=== PATIENT | male | born 1930 | race Caucasian/White ===

== ENCOUNTER 2018-09-15 20:43 | Emergency (ER) | payer OTHER ==
[2018-09-15 21:03] LABS: PLATELET COUNT 186 10^3/uL (150-400)
--- NOTE | 2018-09-15 21:09 | EDPHY ---
HPI/HX/ROS/PE/MDM Narrative: CHIEF COMPLAINT: Chest pain HPI: The patient is an 88 y/o male with hypertension and atrial fibrillation arriving via EMS complaining of pinpoint left-sided chest pain and fatigue for the last three weeks. He says "it started out as very mild and the deeper the breath I took the harder it hurt." Tonight he spoke with his [id number] about the pain and ultimately was encouraged to call 911 for evaluation. His pain is not aggravated by palpation, but is worse with inspiration. He is not on anticoagulants, but does take aspirin. These symptoms do not feel similar to the chest tightness he experienced two years ago while swimming that lead to his diagnosis of atrial fibrillation. He denies cough, fever, vomiting, abdominal pain, diarrhea, urinary symptoms, or other complaints. REVIEW OF SYSTEMS: A comprehensive 10 system review of systems is otherwise negative aside from elements mentioned in the history of present illness. PMH: Hypertension, atrial fibrillation, frequent PVCs Prior medical records reviewed including admission 03/05/16 for chest pain. SOCIAL HISTORY: Children at bedside. His 3 weeks after starting blood thinners and he adamantly refuses to take them. PHYSICAL EXAM: General:Patient is alert, in no acute distress. ENT:Eyes are normal to inspection. ENT inspection normal. Neck: Normal inspection. Full range of motion. Respiratory:No respiratory distress. Breath sounds normal bilaterally. Cardiovascular: Regular rate and rhythm. Strong peripheral pulses. Normal cap refill. Abdomen:The abdomen is nontender to palpation. There are no peritoneal signs. Back: Normal to inspection. No tenderness to palpation. Skin: Normal color. No rash. Warm and dry. Extremities: Normal appearance. Full range of motion. Neuro: Oriented x3. Normal motor function. Normal sensory function. ED Course: This is an 87 y/o male with a history of atrial fibrillation not on anticoagulants who presents with a three-week history of pinpoint left-sided chest pain. Exam is unremarkable. Plan for IV, labs, EKG, chest x-ray. The 12 lead EKG was interpreted by myself. See hard copy and/or "tracemaster" electronic copy for interpretation. Chest x-ray: no obvious pneumonia Labs including troponin, d-dimer are normal. Reassessed patient and discussed findings. On reexamination, upon palpating in a specific location on his left chest wall he experiences relief of his pain. Family notes he also had a fall recently. This combined with a negative work up points more towards musculoskeletal causes of his pain. Discussed options for further investigation and he would prefer to return home and follow up as an outpatient. Recommended preschool assistant teacher follow up as well. Return precautions discussed. He is comfortable with this plan. - Data Points Imaging Results: Imaging Impressions Chest X-Ray 09/15/18 20:46 Impression: Minimal left basilar diskoid subsegmental atelectasis versus linear scar. Imaging: I viewed and interpreted images myself Laboratory Results: Laboratory Results 09/15/18 20:50 09/15/18 21:11 09/15/18 09/15/18 09/15/18 21:11 21:11 20:55 WBC RBC Hgb Hct MCV MCH MCHC RDW Plt Count MPV Neut % (Auto) Lymph % (Auto) Brule % (Auto) Eos % (Auto) Baso % (Auto) Nucleat RBC Rel Count Absolute Neuts (auto) Absolute Lymphs (auto) Absolute Monos (auto) Absolute Eos (auto) Absolute Basos (auto) Absolute Nucleated RBC Immature Gran % Immature Gran # D-Dimer 0.49 ug/mLFEU ug/mLFEU (0.00-0.50) Turbidity Sodium 137 mEq/L mEq/L (135-145) Potassium 4.2 mEq/L mEq/L (3.3-5.0) Chloride 104 mEq/L mEq/L (97-110) Carbon Dioxide 28 mEq/l mEq/l (22-31) Anion Gap 5 mEq/L L mEq/L (6-14) BUN 22 mg/dL mg/dL (7-23) Creatinine 0.9 mg/dL mg/dL (0.7-1.3) Estimated GFR > 60 Glucose 90 mg/dL mg/dL (70-100) Calcium 9.1 mg/dL mg/dL (8.5-10.4) POC Troponin I 0.02 ng/mL ng/mL (0.00-0.08) Specimen Hemolysis 09/15/18 09/15/18 09/15/18 20:50 20:50 20:50 WBC 8.20 10^3/uL 10^3/uL (3.80-9.50) RBC 4.50 10^6/uL 10^6/uL (4.40-6.38) Hgb 14.6 g/dL g/dL (13.7-17.5) Hct 42.8 % % (40.0-51.0) MCV 95.1 fL fL (81.5-99.8) MCH 32.4 pg pg (27.9-34.1) MCHC 34.1 g/dL g/dL (32.4-36.7) RDW 13.5 % % (11.5-15.2) Plt Count 186 10^3/uL 10^3/uL (150-400) MPV 10.6 fL fL (8.7-11.7) Neut % (Auto) 51.5 % % (39.3-74.2) Lymph % (Auto) 33.7 % % (15.0-45.0) Brule % (Auto) 8.0 % % (4.5-13.0) Eos % (Auto) 5.6 % % (0.6-7.6) Baso % (Auto) 1.0 % % (0.3-1.7) Nucleat RBC Rel Count 0.0 % % (0.0-0.2) Absolute Neuts (auto) 4.22 10^3/uL 10^3/uL (1.70-6.50) Absolute Lymphs (auto) 2.76 10^3/uL 10^3/uL (1.00-3.00) Absolute Monos (auto) 0.66 10^3/uL 10^3/uL (0.30-0.80) Absolute Eos (auto) 0.46 10^3/uL H 10^3/uL (0.03-0.40) Absolute Basos (auto) 0.08 10^3/uL 10^3/uL (0.02-0.10) Absolute Nucleated RBC 0.00 10^3/uL 10^3/uL (0-0.01) Immature Gran % 0.2 % % (0.0-1.1) Immature Gran # 0.02 10^3/uL 10^3/uL (0.00-0.10) D-Dimer REJ Turbidity REJ Sodium REJ Potassium REJ Chloride REJ Carbon Dioxide REJ Anion Gap REJ BUN REJ Creatinine REJ Estimated GFR REJ Glucose REJ Calcium REJ POC Troponin I Specimen Hemolysis REJ Point of Care Test Results: Chemistry 10/29/18 20:55 POC Troponin I 0.02 ng/mL ng/mL (0.00-0.08) General Time Seen by Provider: 09/15/18 20:45 Initial Vital Signs: Initial Vital Signs Temperature (C) 36.4 C 09/15/18 20:43 Heart Rate 87 09/15/18 20:43 Respiratory Rate 16 09/15/18 20:43 Blood Pressure 155/89 H 09/15/18 20:43 O2 Sat (%) 94 09/15/18 20:43 O2 Delivery Mode Room Air Allergies/Adverse Reactions: No Known Allergies Allergy (Verified 09/15/18 20:51) Home Medications: Medication Instructions Recorded C/E/Zn/Cu/OM3/DHA/EPA/LUT/ZEAX 1 each PO HS 03/05/16 [Preservision Areds 2 Softgel] Lisinopril [Zestril 20 mg (*)] 20 mg PO HS 03/05/16 amLODIPine BESYLATE [Norvasc 10 mg 10 mg PO HS 03/05/16 (*)] Aspirin [Aspirin 325 mg (*)] 325 mg PO DAILY #0 tab 03/06/16 Departure - Departure Disposition: Home, Routine, Self-Care Clinical Impression: Chest wall pain Condition: Good Instructions: Chest Wall Pain (ED) Additional Instructions: Follow up with your preschool assistant teacher this week. Return to the ED for any worsening of condition. Referrals: Noah Villegas, AFTER SCHOOL PROGRAM DIRECTOR [Certified Nurse Practioner] - As per Instructions Report Scribed for: Ankit Mehta Report Scribed by: Kait Dunn Date of Report: 09/15/18 Time of Report: 21:11 Physician Review and Approval Statement: Portions of this note were transcribed by an ED scribe. I personally performed the history, physical exam, and medical decision making; and confirm the accuracy of the information in the transcribed note.
[2018-09-15 22:39] VITALS: BP 132/70
--- NOTE | 2018-09-22 21:27 | CPEKG ---
Test Reason : OPEN Blood Pressure : / mmHG Vent. Rate : 078 BPM Atrial Rate : 078 BPM P-R Int : 241 ms QRS Dur : 091 ms QT Int : 373 ms P-R-T Axes : 020 032 050 degrees QTc Int : 425 ms Sinus rhythm Prolonged AK interval Confirmed by Ankit Mehta ([id number]) on 09/22/2018 9:26:58 PM Referred By: Confirmed By:Ankit Mehta
== END 2018-09-15 22:37 | disposition home or self-care (01) ==
LOC: EDUNIT#
DX: R07.89 Other chest pain (principal); J98.4 Other disorders of lung; I48.91 Unspecified atrial fibrillation; I10 Essential (primary) hypertension
CPT/HCPCS: 84484-PO

== ENCOUNTER 2018-10-16 19:50 | Inpatient (IN) | payer OTHER ==
[2018-10-16] MEDS ORDERED: ONDANSETRON DISINTEGRATING 4 MG TAB PO ONE (20:22)
--- NOTE | 2018-10-16 20:49 | EDPHY ---
HPI/HX/ROS/PE/MDM Narrative: CLINICAL IMPRESSION: Closed right subcapital hip fracture ASSESSMENT/PLAN: This is a pleasant 88-year-old male who presents to the emergency department with acute right hip and upper leg pain after a ground level fall in his home tonight. Patient fell on his right side after losing his balance opening refrigerator. He did not hit his head, denies neck and back pain, has no chest wall or rib pain, and no other injuries reported. On x-rays, patient has a closed subcapital right hip fracture that will need surgical intervention. No other fractures identified. Discussed with hospitalist and Dr. Yeboah from Orthopedics. He will likely take the patient to the operating room tomorrow. Preop labs obtained. Patient was comfortable in the ED and did not require any pain medications. X-ray findings and orthopedic recommendations related to the family. Patient was stabilized prior to admission to hospitalist service. DIFFERENTIAL DX: Differential diagnosis includes but not limited to femur fracture, hip fracture , pelvic fracture, leg contusion, soft tissue injury ED PROCEDURES: See lab and x-ray results below ED COURSE: Discussed with hospitalist and Orthopedics. Patient will be admitted to hospitalist service. Plan for surgery tomorrow. NPO after midnight. Patient declining analgesics in the ED. X-ray results discussed with the family. CHIEF COMPLAINT: Fall HPI: This is a very pleasant 88-year-old male who presents to the emergency department after a ground level fall in his home. Patient reports he was going to the refrigerator to remove a meal, pulled back on the refrigerator door, lost his balance and fell onto his right hip. He is complaining of right upper leg pain. He was able to crawl onto his left knee and call his neighbor for help and they called 911. Patient reports he did not hit his head or have loss of consciousness. He reports no neck or back pain, chest wall pain, abdominal pain, or arm pain. No prior orthopedic surgery to the right hip or leg. No reported loss of sensation to the foot or toes. No headache, dizziness, vertigo , weakness, chest pain or shortness of breath. He was feeling slightly nauseous upon arrival, received Zofran and is now feeling better. PMH: Hypertension, macular degeneration Pertinent Past Surgical History: Back surgery, previous appendectomy Family History: Noncontributory Social History: Lives alone REVIEW OF SYSTEMS: All other systems negative Constitutional: No fever, no chills, appetite change. Eyes: No discharge, vision change ENT: No sore throat, congestion, ear pain. Cardiovascular: No chest pain, no palpitations. Respiratory: No cough, no shortness of breath. Gastrointestinal: No abdominal pain, no vomiting, diarrhea. Genitourinary: No hematuria, dysuria, flank pain, pelvic pain Musculoskeletal: No back pain, joint swelling, +joint pain, myalgias. Skin: No rashes, color change. Neurological: No headache, dizziness, weakness. PHYSICAL EXAM: General Appearance: Alert, oriented, appropriate, cooperative, NAD, well hydrated, non-toxic appearing, VSS, no hypoxia. HEENT: TMs are clear bilaterally no perforation or FB, no injection, no evidence of serous or mucopurulent otitis. Oropharynx clear is no erythema or exudates, no tonsillar hypertrophy or asymmetry. Dentition without abnormality. No scalp hematoma or evidence of closed head injury Eyes: PERRLA, no acute vision change, nystagmus, swelling, discharge, pain or photosensitivity. Conjunctiva pink, no pallor or injection Neck: Supple, nontender, no lymphadenopathy, no midline pain, FROM, no meningismus. Respiratory: There are no retractions, lungs are clear to auscultation. No chest wall pain to palpation. No rib pain. Cardiac: Regular rate and rhythm, no murmurs or gallops. Gastrointestinal: Abdomen is soft, nontender, bowel sounds normal, no masses/ hernia, no rigidity, guarding or focal peritoneal findings. Neurological: Alert and oriented x 3, CN 2-12 grossly intact, unable to ambulate, DTR's intact, normal sensation and strength Skin: Warm, dry, no rashes, no nodules on palpation. Musculoskeletal: Unable to assess range of motion of the right hip due to pain. No obvious deformity or internal or external rotation or shortening. No reproducible knee pain. Distal neurovascular exam intact. Femoral pulses intact bilaterally, no open wound Psychiatric: Patient is oriented X 3, there is no agitation. MEDICAL DECISION MAKING: Patient was seen independently. Secondary supervising physician at time of evaluation was Dr. Concepcion . Diagnosis: Closed right subcapital femur fracture . New, requires workup Summary: See Assessment and Plan for summary of ED visit Clinical lab tests: ordered / reviewed. Independent visualization of images, tracing, or specimens: Yes. Discussed patient with another provider: Dr. Yeboah, DR. Oneill Patient Progress: Stabilized . (Hernando Burk) MDM: The patient was evaluated and managed by the Physician Phlebotomy Supervisor. I discussed the patient's presentation and course with the midlevel provider with them and agree with the evaluation. My co-signature indicates that I have reviewed this chart and I agree with the findings and plan of care as documented. I am the secondary supervising physician. (Niesha Concepcion) - Data Points Laboratory Results: Laboratory Results 10/16/18 21:50 10/16/18 21:50 Medications Given: Amlodipine Besylate (Norvasc) 10 mg PO HS PAIGE Stop: 04/15/19 20:59 Last Admin: 10/17/18 21:19 Dose: 10 mg Enoxaparin Sodium (Lovenox) 40 mg SC DAILY PAIGE Stop: 04/16/19 08:59 Last Admin: 10/18/18 09:26 Dose: 40 mg Dextrose/Sodium Chloride (D5w 1/2 Ns) 1,000 mls @ 100 mls/hr IV CONT PAIGE Stop: 04/14/19 22:29 Last Admin: 10/17/18 00:53 Dose: 1,000 mls Sodium Chloride (Ns) 1,000 mls @ 100 mls/hr IV CONT PAIGE Stop: 04/15/19 08:44 Last Admin: 10/17/18 09:53 Dose: 1,000 mls Ondansetron HCl (Zofran Odt) 4 mg PO Q4HRS PRN PRN Reason: Nausea/Vomiting, Use 1st Stop: 04/14/19 22:17 Last Admin: 10/17/18 00:48 Dose: 4 mg Discontinued Medications Acetaminophen (Tylenol) 1,000 mg PO Q8HRS PRN PRN Reason: Pain, Mild to moderate Stop: 04/14/19 22:17 Last Admin: 10/16/18 22:50 Dose: 1,000 mg Acetaminophen (Tylenol) 1,000 mg PO ONCALL ONE Stop: 10/17/18 15:07 Last Admin: 10/17/18 18:01 Dose: Not Given Bacitracin (Bacitracin Syringe) Confirm Administered Dose 50,000 units IRR .STK- MED ONE Stop: 10/17/18 10:21 Last Admin: 10/17/18 15:39 Dose: 50,000 units Bupivacaine HCl/Epinephrine Bitart (Bupivacaine/Epi) Confirm Administered Dose 30 ml .ROUTE .STK-MED ONE Stop: 10/17/18 10:24 Last Admin: 10/17/18 16:30 Dose: 30 ml Calcium Chloride (Calcium Chloride) Confirm Administered Dose 1 gm .ROUTE .STK- MED ONE Stop: 10/17/18 10:22 Last Admin: 10/17/18 16:23 Dose: Not Given Lactated Ringer's (Lr) 1,000 mls @ 0 mls/hr IV ONCE ONE PRN Reason: As Directed Stop: 10/17/18 13:53 Last Admin: 10/17/18 18:00 Dose: Not Given Cefazolin Sodium/Dextrose (Ancef) 100 mls @ 200 mls/hr IV ONCALL ONE Stop: 10/17/18 15:29 Last Admin: 10/17/18 18:00 Dose: Not Given Cefazolin Sodium/Dextrose (Ancef) 100 mls @ 200 mls/hr IV ONCALL ONE PRN Reason: Protocol Stop: 10/17/18 15:35 Last Admin: 10/17/18 14:59 Dose: 100 mls Ropivacaine 80 mg/ Epinephrine HCl 0.2 mg/ Ketorolac Tromethamine 30 mg/ Morphine Sulfate 10 mg/ Syringe 42.2 mls @ 0 mls/hr IU ONCALL ONE PRN Reason: As Directed Stop: 10/17/18 15:07 Last Admin: 10/17/18 15:39 Dose: 42.2 mls Tranexamic Acid 3,000 mg/ (Sodium Chloride) 50 mls @ 0 mls/hr IRR ONCALL ONE PRN Reason: As Directed Stop: 10/17/18 15:07 Last Admin: 10/17/18 15:39 Dose: 50 mls Cefazolin Sodium/Dextrose (Ancef 1 Gm (Premix)) 50 mls @ 200 mls/hr IV Q8H PAIGE PRN Reason: Protocol Stop: 10/18/18 07:14 Last Admin: 10/18/18 06:41 Dose: 50 mls Ondansetron HCl (Zofran Odt) 4 mg PO EDNOW ONE Stop: 10/16/18 20:23 Last Admin: 10/16/18 20:25 Dose: 4 mg Polymyxin B Sulfate (Polymyxin B Syringe) Confirm Administered Dose 500,000 unit IRR .STK-MED ONE Stop: 10/17/18 10:21 Last Admin: 10/17/18 16:00 Dose: 500,000 unit Thrombin (Thrombin-Jmi) Confirm Administered Dose 5,000 unit TP .STK-MED ONE Stop: 10/17/18 10:23 Last Admin: 10/17/18 16:30 Dose: Not Given General Time Seen by Provider: 10/16/18 20:27 Initial Vital Signs: Initial Vital Signs Temperature (C) 36.8 C 10/16/18 19:54 Heart Rate 88 10/16/18 19:54 Respiratory Rate 18 10/16/18 19:54 Blood Pressure 152/72 H 10/16/18 19:54 O2 Sat (%) 90 L 10/16/18 19:54 O2 Delivery Mode Nasal Cannula O2 (L/minute) 1 Allergies/Adverse Reactions: No Known Allergies Allergy (Verified 10/16/18 19:53) Home Medications: Medication Instructions Recorded C/E/Zn/Cu/OM3/DHA/EPA/LUT/ZEAX 1 each PO HS 03/05/16 [Preservision Areds 2 Softgel] Lisinopril [Zestril 20 mg (*)] 20 mg PO HS 03/05/16 amLODIPine BESYLATE [Norvasc 10 mg 10 mg PO HS 03/05/16 (*)] Aspirin [Aspirin 81mg (*)] 81 mg PO HS 10/16/18 Departure - Departure Disposition: [facility] Clinical Impression: Intertrochanteric fracture of right hip Qualifiers: Encounter type: initial encounter Fracture type: closed Fracture alignment: displaced Qualified Code(s): S72.141A - Displaced intertrochanteric fracture of right femur, initial encounter for closed fracture Condition: Good
[2018-10-16 22:03] LABS: PLATELET COUNT 193 10^3/uL (150-400)
[2018-10-16 22:12] LABS: INR 0.93 (0.83-1.16); PROTIME(PATIENT) 12.7 SEC (12.0-15.0)
[2018-10-16] MEDS ORDERED: ONDANSETRON DISINTEGRATING 4 MG TAB PO PRN (22:18)
[2018-10-16] MEDS ORDERED: oxyCODONE IR 5 MG TAB PO PRN (22:18)
[2018-10-16] MEDS ORDERED: ACETAMINOPHEN 325 MG TAB PO PRN (22:18)
[2018-10-16] MEDS ORDERED: ONDANSETRON 4 MG/2 ML VIAL IVP PRN (22:18)
[2018-10-16] MEDS ORDERED: D5W 1/2 NS 1,000 ML IV SCH (22:30)
[2018-10-16] MEDS ORDERED: ACETAMINOPHEN 500 MG TAB ONE (22:49)
--- NOTE | 2018-10-16 23:37 | PDGENHP ---
History and Physical - Chief Complaint R hip pain - History of Present Illness 88 yo M w/ hx of HTN presents after a fall. He was getting food out of the fridge when he missed the handle and fell. He noted R hip pain shortly after. He denies head trauma or LOC. Upon arrival in the ED evaluation was notable for R hip fracture. The patient is being admitted for management of this. His pain is mild to moderate at this time after Tylenol. He denies fever, chest pain, or SOB. He has minimal other PMHx. He takes medication for HTN, which is well controlled. He had paroxysmal AF in the past but he tells me this has not been an issue in some times. He takes a daily ASA. Case discussed with Dr. Oneill; records reviewed and summarized above. History Information - Allergies/Home Medication List Allergies/Adverse Reactions: No Known Allergies Allergy (Verified 10/16/18 19:53) Home Medications: C/E/Zn/Cu/OM3/DHA/EPA/LUT/ZEAX [Preservision Areds 2 Softgel] 1 each PO HS 03/05 [Last Taken 03/04/16 22:00] Lisinopril [Zestril 20 mg (*)] 20 mg PO HS 03/05/16 [Last Taken 03/04/16 22:00] amLODIPine BESYLATE [Norvasc 10 mg (*)] 10 mg PO HS 03/05/16 [Last Taken 22:00] Aspirin EC 81 mg (*) 10/16/18 [Last Taken Unknown] I have personally reviewed and updated: family history, medical history - Past Medical History hypertension - Surgical History Reports: spinal surgery - Family History Additional family history: Asked, denies - Social History Smoking Status: Never smoked Review of Systems Review of Systems: ROS: 10pt was reviewed & negative except for what was stated in HPI & below Physical Exam Physical Exam: Temp Pulse Resp BP Pulse Ox 36.8 C 70 16 136/78 H 94 10/16/18 19:54 10/16/18 22:19 10/16/18 22:19 10/16/18 22:19 10/16/18 22:19 O2 (L/minute) 1 Constitutional: appears nourished, uncomfortable Eyes: PERRL, EOMI Ears, Nose, Mouth, Throat: moist mucous membranes, no oral mucosal ulcers Cardiovascular: regular rate and rhythym, systolic murmur Respiratory: no respiratory distress, clear to auscultation Gastrointestinal: normoactive bowel sounds, soft, non-tender abdomen Skin: warm, normal color Musculoskeletal: full muscle strength, pain with ROM (R hip) Neurologic: AAOx3, CN II-XII Intact Psychiatric: interacting appropriately, not anxious Lab Data & Imaging Review 10/16/18 21:50 10/16/18 21:50 WBC 13.14 10^3/uL (3.80-9.50) H 10/16/18 21:50 RBC 4.56 10^6/uL (4.40-6.38) 10/16/18 21:50 Hgb 14.6 g/dL (13.7-17.5) 10/16/18 21:50 Hct 43.2 % (40.0-51.0) 10/16/18 21:50 MCV 94.7 fL (81.5-99.8) 10/16/18 21:50 MCH 32.0 pg (27.9-34.1) 10/16/18 21:50 MCHC 33.8 g/dL (32.4-36.7) 10/16/18 21:50 RDW 13.3 % (11.5-15.2) 10/16/18 21:50 Plt Count 193 10^3/uL (150-400) 10/16/18 21:50 MPV 10.0 fL (8.7-11.7) 10/16/18 21:50 Neut % (Auto) 87.1 % (39.3-74.2) H 10/16/18 21:50 Lymph % (Auto) 6.9 % (15.0-45.0) L 10/16/18 21:50 Hendry % (Auto) 4.9 % (4.5-13.0) 10/16/18 21:50 Eos % (Auto) 0.5 % (0.6-7.6) L 10/16/18 21:50 Baso % (Auto) 0.3 % (0.3-1.7) 10/16/18 21:50 Nucleat RBC Rel Count 0.0 % (0.0-0.2) 10/16/18 21:50 Absolute Neuts (auto) 11.45 10^3/uL (1.70-6.50) H 10/16/18 21:50 Absolute Lymphs (auto) 0.91 10^3/uL (1.00-3.00) L 10/16/18 21:50 Absolute Monos (auto) 0.64 10^3/uL (0.30-0.80) 10/16/18 21:50 Absolute Eos (auto) 0.06 10^3/uL (0.03-0.40) 10/16/18 21:50 Absolute Basos (auto) 0.04 10^3/uL (0.02-0.10) 10/16/18 21:50 Absolute Nucleated RBC 0.00 10^3/uL (0-0.01) 10/16/18 21:50 Immature Gran % 0.3 % (0.0-1.1) 10/16/18 21:50 Immature Gran # 0.04 10^3/uL (0.00-0.10) 10/16/18 21:50 PT 12.7 SEC (12.0-15.0) 10/16/18 21:50 INR 0.93 (0.83-1.16) 10/16/18 21:50 APTT 26.2 SEC (23.0-38.0) 10/16/18 21:50 Sodium 139 mEq/L (135-145) 10/16/18 21:50 Potassium 4.3 mEq/L (3.3-5.0) 10/16/18 21:50 Chloride 103 mEq/L (97-110) 10/16/18 21:50 Carbon Dioxide 28 mEq/l (22-31) 10/16/18 21:50 Anion Gap 8 mEq/L (6-14) 10/16/18 21:50 BUN 20 mg/dL (7-23) 10/16/18 21:50 Creatinine 1.0 mg/dL (0.7-1.3) 10/16/18 21:50 Estimated GFR > 60 10/16/18 21:50 Glucose 110 mg/dL (70-100) H 10/16/18 21:50 Calcium 9.2 mg/dL (8.5-10.4) 10/16/18 21:50 Imaging Review: Imaging Impressions Femur X-Ray 10/16/18 20:44 Impression: Subcapital fracture of the right hip as described. Hip X-Ray 10/16/18 20:44 Impression: Subcapital fracture of the right hip. Chest X-Ray 10/16/18 21:30 Impression: No acute findings in the chest. Visualized and Interpreted Chest x-ray results: Yes Chest X-Ray results: no infiltrate Visualized and Interpreted EKG results: Yes EKG Interpretation: Positive for: normal sinsus rhythm Assessment & Plan Assessment: 88 yo M w/ hx of HTN presents with right hip fracture after a fall. Plan: 1. R hip fracture, acute - Suffered after a mechanical fall from standing height ; he denies head trauma or LOC. XR (personally reviewed/interpreted) reveals R subcapital fracture of the right hip. This qualifies as a fragility fracture and merits osteoporosis work-up as an outpatient. - Orthopedic surgery consulted - Maintain NPO, mIVF - APAP, Oxycodone PRN for pain control - Recommend osteoporosis work-up including DEXA as outpatient 2. HTN - Continue home medications pending reconciliation 3. Hx pAF - In NSR on admission; on ASA only for this. Diet - NPO pending surgical evaluation Code - Full Ppx - SCDs Dispo - Admit under observation status
[2018-10-17 05:11] LABS: PLATELET COUNT 164 10^3/uL (150-400)
[2018-10-17] MEDS ORDERED: ACETAMINOPHEN 500 MG TAB PO PRN (08:13)
--- NOTE | 2018-10-17 08:24 | HOSPPROG ---
Hospitalist Progress Note Assessment/Plan: 88 yo M w/ hx of HTN presents with right hip fracture after a fall. First encounter, chart reviewed. *R hip fracture, acute. Likely osteoporotic - Orthopedic surgery consulted - APAP, Oxycodone PRN for pain control - Recommend osteoporosis work-up including DEXA as outpatient *mechanical fall -PT and OT to see him after surgery *hyponatremia -recheck in a.m. * HTN - Continue home medications * Hx pAF - In NSR during my evaluation; on ASA only for this. *Plan: OR today with Dr Yeboah, scheduled for 14:30, recheck labs in a.m. Updated the patient and his family about the plan of care. Subjective: Conner says his pain is well managed. Objective: Vital Signs Temp Pulse Resp BP Pulse Ox 36.9 C 66 16 94/51 L 92 10/17/18 07:36 10/17/18 07:36 10/17/18 07:36 10/17/18 07:36 10/17/18 07:36 Laboratory Results 10/17/18 04:49 10/17/18 04:49 10/16/18 10/17/18 10/18/18 05:59 05:59 05:59 Intake Total 734 Output Total 500 Balance 234 PT 12.7 SEC (12.0-15.0) 10/16/18 21:50 INR 0.93 (0.83-1.16) 10/16/18 21:50 - Physical Exam Constitutional: appears nourished, uncomfortable Eyes: PERRL Ears, Nose, Mouth, Throat: hearing normal Cardiovascular: regular rate and rhythym Respiratory: no respiratory distress Gastrointestinal: normoactive bowel sounds Skin: warm Musculoskeletal: other (right leg shortened and rotated out) Neurologic: AAOx3 Psychiatric: interacting appropriately ICD10 Worksheet Patient Problems: Problems Problem Status Onset Intertrochanteric fracture of right hip Acute Atrial fibrillation Acute Chest pain Acute
--- NOTE | 2018-10-17 08:31 | PDMN ---
Medical Necessity Medical necessity: [facility] musculoskeletal sgy ( pend) Fall- R hip fx-acute, displaced R introchanteric hip fx , ortho consult pending, anticipate > 2 MN ongoing med nec care, further eval and tx.
[2018-10-17] MEDS: NS 1,000 ML IV SCH (09:53)
[2018-10-17] MEDS ORDERED: BACITRACIN 50,000 UNITS/10 ML SYR IRR ONE (10:20)
[2018-10-17] MEDS ORDERED: POLYMYXIN B SULFATE 500,000 UNIT/10 ML SYR IRR ONE (10:20)
[2018-10-17] MEDS ORDERED: CALCIUM CHLORIDE 1 GM/10 ML INJ ONE (10:21)
[2018-10-17] MEDS ORDERED: THROMBIN (BOVINE) 5,000 UNIT VIAL TP ONE (10:22)
[2018-10-17] MEDS ORDERED: BUPIVACAINE/EPI 0.5% 30 ML SDV ONE (10:23)
[2018-10-17] MEDS ORDERED: LR 1,000 ML IV ONE (13:52)
[2018-10-17] MEDS ORDERED: PROPOFOL/EMULSION 500 MG/50 ML BOTTLE IV ONE (14:03)
[2018-10-17] MEDS ORDERED: fentaNYL 100 MCG/2 ML INJ ONE ×2 (14:08→16:39)
--- NOTE | 2018-10-17 14:12 | PDANEPAE ---
ANE History of Present Illness 88 year old male with fracture of right hip for hemiarthroplasty. History of hypertension. ANE Past Medical History - Cardiovascular History Hx Hypertension: Yes - Pulmonary History Hx Oxygen in Use at Home: No Hx Sleep Apnea: No Sleep Apnea Screening Result - Last Documented: Positive - Endocrine History Hx Diabetes: No - Chronic Pain History Chronic Pain: Yes ANE Review of Systems Review of systems is: negative Review of Systems: ANE Patient History - Allergies Allergies/Adverse Reactions: No Known Allergies Allergy (Verified 10/16/18 19:53) - Home Medications Home Medications: C/E/Zn/Cu/OM3/DHA/EPA/LUT/ZEAX [Preservision Areds 2 Softgel] 1 each PO HS 03/05 [Last Taken 10/16/18] Lisinopril [Zestril 20 mg (*)] 20 mg PO HS 03/05/16 [Last Taken 10/16/18] amLODIPine BESYLATE [Norvasc 10 mg (*)] 10 mg PO HS 03/05/16 [Last Taken ] Aspirin [Aspirin 81mg (*)] 81 mg PO HS 10/16/18 [Last Taken 10/16/18] - NPO status NPO Since - Liquids (Date): 10/16/18 NPO Since - Liquids (Time): 20:00 NPO Since - Solids (Date): 10/16/18 NPO Since - Solids (Time): 14:00 - Smoking Hx Smoking Status: Never smoked ANE Labs/Vital Signs - Labs Result Diagrams: 10/17/18 04:49 10/17/18 04:49 - Vital Signs Blood Pressure: 103/50 Heart Rate: 65 Respiratory Rate: 17 O2 Sat (%): 94 Height: 180.34 cm Weight: 68.039 kg ANE Physical Exam - Airway Neck exam: decreased ROM Mallampati Score: Class 3 Mouth exam: dentures - Pulmonary Pulmonary: no respiratory distress - Cardiovascular Cardiovascular: regular rate and rhythym - ASA Status ASA Status: III, E ANE Anesthesia Plan Anesthesia Plan: GA w LMA
[2018-10-17] MEDS ORDERED: ceFAZolin 2 GM/DEXTROSE 100 ML IV ONE ×2 (15:00→15:06)
[2018-10-17] MEDS ORDERED: TRANEXAMIC ACID 3,000 MG in NS (SYRINGE) 50 ML IRR ONE (15:06)
[2018-10-17] MEDS ORDERED: ROPIVACAINE 0.2% 80 MG, EPINEPHrine 0.2 MG, KETOROLAC TROMETHAMINE 30 MG, morphINE 10 M... IU ONE (15:06)
[2018-10-17] MEDS ORDERED: ACETAMINOPHEN 500 MG TAB PO ONE (15:06)
--- NOTE | 2018-10-17 15:32 | ASMTCMCOM ---
CM Note CM Note Notes: Pt to OR today for hip fx after fall at home. Therapies to eval when appropriate. Date Signed: 10/17/2018 03:31 PM Electronically Signed By:CATHI Child
[2018-10-17] MEDS ORDERED: DEXAMETHASONE 4 MG/ML VIAL IVP PRN (15:46)
[2018-10-17] MEDS ORDERED: LABETALOL HCL 20 MG/4 ML INJ IVP PRN (15:46)
[2018-10-17] MEDS ORDERED: NALOXONE HCL 0.4 MG/ML INJ IVP PRN (15:46)
[2018-10-17] MEDS ORDERED: fentaNYL 100 MCG/2 ML INJ IVP PRN (15:46)
[2018-10-17] MEDS ORDERED: PROMETHAZINE HCL 25 MG/ML INJ IVP PRN (15:46)
[2018-10-17] MEDS ORDERED: ALBUTEROL 3 ML DEYVIAL IH PRN (15:46)
[2018-10-17] MEDS ORDERED: HYDROCODONE/APAP 5/325 TAB PO PRN (16:47)
[2018-10-17] MEDS ORDERED: TEMAZEPAM 15 MG CAP PO PRN (16:47)
--- NOTE | 2018-10-17 16:47 | POSTOPPROG ---
Post Op Note Date of Operation: 10/17/18 Surgeon: Ebony Yeboah Nursing Surgical Services Director: coltrain Anesthesia: LMA Pre-op Diagnosis: r hip fx Procedure: r hip ahsan-arthrolplasty with fluoro Inf/Abcess present in the surg proc area at time of surgery?: No Depth: Deep Incisional (Fascial) EBL: 100-500
[2018-10-17] MEDS ORDERED: TAPENTADOL HCL 50 MG TAB PO PRN (16:51)
--- NOTE | 2018-10-18 06:08 | GCON ---
INPATIENT CONSULTATION. DATE OF CONSULTATION: 10/17/2018 CHIEF COMPLAINT: Right hip pain. HISTORY OF PRESENT ILLNESS: The patient is an 88-year-old male who was trying to open his refrigerat or door last night, slipped, fell on the floor, was unable to get up. Was finally able to call an am bulance. Brought to the emergency room, diagnosed with a hip fracture. I was asked to see the patie nt for further evaluation. PHYSICAL EXAM: He is neurologically intact distally to the dorsal, lateral and plantar portions of t he foot. EHL and FHL remain intact. He has pain to log roll. X-ray exam reveals displaced subcapital fracture of his right hip. Options were discussed with the p atient including conservative versus operative treatment. He opted for operative treatment. He will therefore be brought to the operating room as soon as time is available. /[id number]/MODL
--- NOTE | 2018-10-18 06:17 | GOP ---
DATE OF OPERATION: 10/17/2018 SURGEON: Ebony Yeboah MD [employer] PROFESSIONAL: VJ Dunne, LSA, whose presence was medically necessary. ANESTHESIA: LMA. PREOPERATIVE DIAGNOSIS: Right hip fracture. POSTOPERATIVE DIAGNOSIS: Right hip fracture. PROCEDURE PERFORMED: Right hip hemiarthroplasty with fluoroscopy. FINDINGS: INDICATIONS: This is an 88-year-old male, who had fallen last night, was seen in the emergency room, diagnosed with a hip fracture. He was brought to the operating room as soon as time was available. DESCRIPTION OF PROCEDURE: The patient brought to the operating room after the right side had been id entified as the correct side by the patient, nurse and physician. Once in the operating room, was bernarda traci under general anesthesia using an LMA. Once asleep, he was placed on a traction table with a wel l-padded peroneal post and both legs placed in appropriate leg mercedes. Fluoroscopy was used to ensur e proper positioning of the pelvis. Once in proper position, the arch table was locked into place. T he right hip and flank were then sterilely prepped and draped in usual fashion using a GSI solution. Once prepped and draped, incision was made starting 2 cm lateral and inferior to the ASIS and headin g in a 15-degree posterior direction, with sharp dissection carried down through the skin and subcuta neous layers, bleeding controlled using electrocautery. Incision was made directly over the fascia o verlying the TFL with the muscle belly retracted laterally. Deeper dissection down to the fascial sh eath revealed the circumflex vessels which were cauterized. Once cauterized, deeper dissection was c arried down onto the anterior portion of the femoral neck with Kober retractors placed superior and i nferior to the capsule. Further dissection was carried down the anterior portion of the acetabulum. The anterior capsule was then excised gaining access into the joint. Oscillating saw was used to cu t across the femoral neck just above the intertrochanteric line with osteotomes used to finish. The leg was externally rotated 40 degrees and the head was removed. It was measured to be [address] The pulvinar was removed from the base of the acetabulum as well as the teres ligament. Multip le trials were placed within the acetabulum and a 53 mm head seemed to fit best. Therefore, attentio n was turned back to the proximal femur, which actually rotated 90 degrees. Capsular dissection was done on the anterior and superior portion of the femoral neck. Once an adequate capsular release had been performed, the leg was dropped into extension, and adduction. Once in place, a curette was use d to remove the proximal portion of the medullary bone with a rongeur used to remove the superior por tion of femoral neck. Canal finder was passed into the medullary cavity and sequential broaches were used up to a size 8 which was noted to fit securely. Trial reduction was performed. Leg was reloca susu. Fluoroscopy was used to ensure proper positioning of the prosthesis and good fill of the proxim al femur. Therefore, the hip was re-dislocated. The trials were removed and a size 8 Accolade II, 1 32-degree neck angle was put into place, noted to fit securely. Trial reduction was again performed with multiple sizes of the heads. Once reduced, joint cocktail was injected into the posterior capsul e, and the periosteum of the femur and acetabulum with tranexamic acid irrigated through the wound. Fluoroscopy was used to ensure proper positioning and adequate leg lengthening. Once completed, the leg was re-dislocated, placed in extension and adduction. The trunnion was washed and dried, and a 2 6 + 0 femoral head was put into place and then a 53 x 26 bipolar component was put onto the head. The leg was then brought back and relocated, put in proper position. Fluoroscopy was again used to ensu re proper positioning. The wound was then closed in layers to include #2 PDO suture in a running whi p stitch through the fascia overlying the TFL, 0 Vicryl and 2-0 Vicryl suture for the subcutaneous la yers and a 3-0 V-Loc suture in a running subcuticular stitch for the skin. 30 cc of Marcaine was inf used around the actual skin incision itself. The wound was dressed with Steri-Strips, Xeroform, 4 x 4, and Tegaderm. The patient was completely undraped in the operating room. Both legs were taken ou t of the appropriate leg mercedes. Peroneal post was removed. Leg lengths were noted to be nearly equ al. The patient was then woken up, extubated, transferred onto a stretcher, and sent to recovery deana m in good condition. /[id number]/MODL
[2018-10-18] MEDS: ENOXAPARIN 40 MG/0.4 ML SYR SC SCH (09:26)
--- NOTE | 2018-10-18 14:32 | HOSPPROG ---
Hospitalist Progress Note Assessment/Plan: 88 yo M w/ hx of HTN presents with right hip fracture after a fall. *R hip fracture, acute. Likely osteoporotic - s/p r hip hemiarthroplasty on 10/17 - APAP, Oxycodone PRN for pain control - Recommend osteoporosis work-up including DEXA as outpatient - pain is well managed *mechanical fall -PT and OT *anemia -expected post op *hyponatremia -resolved *tremors -upper extremity, ongoing for approximately 6 months -will have him f/u with a neurologist in the OP setting * HTN - Continue home medications * Hx pAF - In NSR during my evaluation; on ASA only for this. *dvt prophylaxis: LMWH *Plan: continue supportive care Subjective: Gene is feeling fine, no significant pain. Not very hungry but ate breakfast. Objective: Vital Signs Temp Pulse Resp BP Pulse Ox 36.8 C 82 19 103/49 L 92 10/18/18 11:34 10/18/18 11:34 10/18/18 11:34 10/18/18 11:34 10/18/18 11:34 Laboratory Results 10/18/18 04:31 10/18/18 04:31 10/17/18 10/18/18 10/19/18 05:59 05:59 05:59 Intake Total 734 970 Output Total 500 1050 Balance 234 -80 PT 12.7 SEC (12.0-15.0) 10/16/18 21:50 INR 0.93 (0.83-1.16) 10/16/18 21:50 - Physical Exam Constitutional: no apparent distress, appears nourished, not in pain Eyes: PERRL Ears, Nose, Mouth, Throat: hearing normal Cardiovascular: regular rate and rhythym Respiratory: no respiratory distress Skin: warm, other (right upper hip area w minimal swelling, dressing dry) Neurologic: AAOx3 Psychiatric: interacting appropriately, poor memory (will repeat his stories and questions ) ICD10 Worksheet Patient Problems: Problems Problem Status Onset Intertrochanteric fracture of right hip Acute Atrial fibrillation Acute Chest pain Acute
--- NOTE | 2018-10-18 16:09 | SOAPPROG ---
SOAP Progress Note Assessment/Plan: Assessment: Plan: Subjective: ststes he feels much better than yesteeday dressing C&D with foot NVI cont PT DC when cleared by PT Objective: Vital Signs Temp Pulse Resp BP Pulse Ox 36.8 C 79 17 93/41 L 97 10/18/18 15:35 10/18/18 15:35 10/18/18 15:35 10/18/18 15:35 10/18/18 15:35 Laboratory Results 10/18/18 04:31 10/18/18 04:31 10/17/18 10/18/18 10/19/18 05:59 05:59 05:59 Intake Total 734 970 Output Total 500 1050 Balance 234 -80 PT 12.7 SEC (12.0-15.0) 10/16/18 21:50 INR 0.93 (0.83-1.16) 10/16/18 21:50 ICD10 Worksheet Patient Problems: Problems Problem Status Onset Intertrochanteric fracture of right hip Acute Atrial fibrillation Acute Chest pain Acute
[2018-10-18] MEDS: NS 1,000 ML IV SCH (23:23)
[2018-10-19] MEDS: ENOXAPARIN 40 MG/0.4 ML SYR SC SCH (08:06)
--- NOTE | 2018-10-19 08:42 | HOSPPROG ---
Hospitalist Progress Note Assessment/Plan: 88 yo M w/ hx of HTN presents with right hip fracture after a fall. *R hip fracture, acute. Likely osteoporotic - s/p r hip hemiarthroplasty on 10/17 - APAP, Oxycodone PRN for pain control - Recommend osteoporosis work-up including DEXA as outpatient - pain is well managed *mechanical fall -PT and OT *anemia -expected post op *hyponatremia -resolved *tremors -upper extremity, ongoing for approximately 6 months -will have him f/u with a neurologist in the OP setting * HTN - Continue home medications * Hx pAF - In NSR during my evaluation; on ASA only for this. *dvt prophylaxis: LMWH *Plan: continue supportive care, asked CM to give family info on SNF's Subjective: Gene is feeling well, had some pain earlier when getting oob. Objective: Vital Signs Temp Pulse Resp BP Pulse Ox 36.8 C 79 18 135/59 H 90 L 10/19/18 07:28 10/19/18 07:28 10/19/18 07:28 10/19/18 07:28 10/19/18 07:28 Laboratory Results 10/18/18 04:31 10/18/18 04:31 10/18/18 10/19/18 10/20/18 05:59 05:59 05:59 Intake Total 970 500 Output Total 1050 Balance -80 500 PT 12.7 SEC (12.0-15.0) 10/16/18 21:50 INR 0.93 (0.83-1.16) 10/16/18 21:50 - Physical Exam Constitutional: no apparent distress, appears nourished Eyes: PERRL Ears, Nose, Mouth, Throat: hard of hearing Cardiovascular: regular rate and rhythym Respiratory: no respiratory distress Gastrointestinal: normoactive bowel sounds Skin: warm Musculoskeletal: generalized weakness Neurologic: AAOx3 Psychiatric: interacting appropriately ICD10 Worksheet Patient Problems: Problems Problem Status Onset Intertrochanteric fracture of right hip Acute Atrial fibrillation Acute Chest pain Acute
--- NOTE | 2018-10-19 12:53 | SOAPPROG ---
SOAP Progress Note Assessment/Plan: Assessment: Plan: Subjective: states he feels better today OOB to chair reported by PT to be doing well plan for placement cont PT Objective: Vital Signs Temp Pulse Resp BP Pulse Ox 36.8 C 79 18 135/59 H 90 L 10/19/18 07:28 10/19/18 07:28 10/19/18 07:28 10/19/18 07:28 10/19/18 07:28 Laboratory Results 10/18/18 04:31 10/18/18 04:31 10/18/18 10/19/18 10/20/18 05:59 05:59 05:59 Intake Total 970 500 Output Total 1050 Balance -80 500 PT 12.7 SEC (12.0-15.0) 10/16/18 21:50 INR 0.93 (0.83-1.16) 10/16/18 21:50 ICD10 Worksheet Patient Problems: Problems Problem Status Onset Intertrochanteric fracture of right hip Acute Atrial fibrillation Acute Chest pain Acute
[2018-10-19] MEDS ORDERED: LACTULOSE 20 GM/30 ML UDCUP PO PRN (21:32)
[2018-10-19] MEDS ORDERED: BISACODYL 10 MG SUPP PR PRN (21:32)
[2018-10-19] MEDS ORDERED: MAGNESIUM HYDROXIDE 30 ML UDCUP PO PRN (21:32)
[2018-10-19] MEDS ORDERED: POLYETHYLENE GLYCOL 3350 17 GM PKT PO PRN (21:32)
[2018-10-19] MEDS: SENNOSIDES/DOCUSATE SODIUM TAB PO SCH (22:27)
[2018-10-20 07:37] VITALS: BP 129/60
[2018-10-20] MEDS: ENOXAPARIN 40 MG/0.4 ML SYR SC SCH (09:07)
[2018-10-20] MEDS: SENNOSIDES/DOCUSATE SODIUM TAB PO SCH (09:07)
--- NOTE | 2018-10-20 09:45 | HOSPPROG ---
Hospitalist Progress Note Assessment/Plan: 88 yo M w/ hx of HTN presents with right hip fracture after a fall. *R hip fracture, acute. Likely osteoporotic - s/p r hip hemiarthroplasty on 10/17 - APAP, Oxycodone PRN for pain control - Recommend osteoporosis work-up including DEXA as outpatient - pain is well managed *mechanical fall -PT and OT *anemia -expected post op *hyponatremia -resolved *tremors -upper extremity, ongoing for approximately 6 months -will have him f/u with a neurologist in the OP setting * HTN - Continue home medications * Hx pAF - In NSR during my evaluation; on ASA only for this. *dvt prophylaxis: LMWH *Plan: dc today to rehab w f/u with Dr Yeboah Subjective: Conner is feeling fine, has no complaints. Objective: Vital Signs Temp Pulse Resp BP Pulse Ox 37.3 C 77 16 129/60 H 93 10/20/18 07:35 10/20/18 07:35 10/20/18 07:35 10/20/18 07:35 10/20/18 07:35 Laboratory Results 10/18/18 04:31 10/18/18 04:31 10/19/18 10/20/18 10/21/18 05:59 05:59 05:59 Intake Total 500 1900 Balance 500 1900 PT 12.7 SEC (12.0-15.0) 10/16/18 21:50 INR 0.93 (0.83-1.16) 10/16/18 21:50 - Physical Exam Constitutional: no apparent distress Eyes: PERRL Ears, Nose, Mouth, Throat: hearing normal Respiratory: no respiratory distress Skin: warm Musculoskeletal: generalized weakness Neurologic: AAOx3 Psychiatric: interacting appropriately ICD10 Worksheet Patient Problems: Problems Problem Status Onset Intertrochanteric fracture of right hip Acute Atrial fibrillation Acute Chest pain Acute
--- NOTE | 2018-10-20 10:35 | PDIAF ---
- Diagnosis Diagnosis: right hip fx s/p hemiathroplasty Code Status: Full Code - Medication Management Discharge Medications: electronically signed and located in the Home Medication List. PICC Care - Routine: N/A - Orders Services needed: Physical Therapy, Occupational Therapy Isolation Type: None Diet Recommendation: no restrictions on diet Diet Texture: Regular Texture Diet Additional Instructions: activity per Dr Yeboah, f/u with Dr Yeboah in 2 weeks - Labs/Radiology BMP Date: 10/27/18 CBC w/diff Date: 10/27/18 - Follow Up Care Current Providers and Referrals: KIKO DIAZ [Primary Care Provider] - As per Instructions Ebony Yeboah MD [Medical Doctor] -
--- NOTE | 2018-10-20 11:37 | ASMTLACE ---
LACE Length of stay for Answers: 4-6 days current admission Acuity / Level of Answers: Yes Care: Did the patient have an inpatient admission? Comorbidities - select Answers: Opioid dependence all that apply / Chronic pain Other Notes: HTN # of Emergency department Answers: 1-2 visits in the last 6 months Score: 13 Date Signed: 10/20/2018 11:37 AM Electronically Signed By:Deepika Degroot RN
[2018-10-20] MEDS ORDERED: PNEUMOC 13-VAL CONJ-DIP CRM/PF 0.5 ML SYR (PREVNAR 13) IM ONE (11:39)
--- NOTE | 2018-10-20 11:44 | ASMTDCNOTE ---
Case Management Discharge Discharge Order Complete? Answers: Yes Patient to Obtain Answers: Other Notes: [facility] Medications Transportation Arranged Answers: Other Notes: [facility] per [facility] Case Management Transport Answers: Yes Form Complete Faxed Final Orders Answers: Yes Discharge Comments Notes: Patient discharged to [facility]. Transport arranged by Megan at [facility] ([facility] [place] February to call report. Date Signed: 10/20/2018 11:43 AM Electronically Signed By:Deepika Degroot RN
--- NOTE | 2018-10-21 11:03 | ASDISCHSUM ---
Discharge Information Plan Status:Has needs-TBD Medically Cleared to Leave: Discharge Date:10/20/2018 02:03 PM CM D/C Disposition: ADT D/C Disposition:Sn[facility] Facility Projected Discharge Date:10/20/2018 11:00 AM Transportation at D/C: Discharge Delay Reason: Follow-Up Date:10/20/2018 11:00 AM Discharge Slot: Final Diagnosis: Placement Information Referral Type:*Detention/SNF Referral ID:[id number] Provider Name:[facility]//[facility] Address 1:[address] [place] [address] Address 2: City:[place] Selection Factors: State:[place] Patient Contact Information Contact Name:JULIO Relationship:Son Address: City: [facility] Phone: [facility]/Zip Code:[place] Email: Financial Information Financial Class:Medicare Advantage Plans Primary Plan Desc:[employer] GOLD MEDICARE Primary Plan Number:[id number] Secondary Plan Desc: Secondary Plan Number: Assessment Information LACE LACE Length of stay for Answers: 4-6 days current admission Acuity / Level of Answers: Yes Care: Did the patient have an inpatient admission? Comorbidities - select Answers: Opioid dependence all that apply / Chronic pain Other Notes: HTN # of Emergency department Answers: 1-2 visits in the last 6 months Score: 13 Date Signed: 10/20/2018 11:37 AM Electronically Signed By:Deepika Degroot RN [facility] Progress Note CM Note CM Note Notes: Pt to OR today for hip fx after fall at home. Therapies to eval when appropriate. Date Signed: 10/17/2018 03:31 PM Electronically Signed By:CATHI Child Case Management Discharge Plan Note Case Management Discharge Discharge Order Complete? Answers: Yes Patient to Obtain Answers: Other Notes: [facility] Medications Transportation Arranged Answers: Other Notes: [facility] per [facility] Case Management Transport Answers: Yes Form Complete Faxed Final Orders Answers: Yes Discharge Comments Notes: Patient discharged to [facility]. Transport arranged by Megan at [facility] ([facility]). [place] February to call report. Date Signed: 10/20/2018 11:43 AM Electronically Signed By:Deepika Degroot RN Intervention Information Intervention Type:*IM-Signed Date of Service:10/20/2018 01:54 PM Patient Type:Inpatient Staff Member:Susan Amaya Hours: Discipline: Severity: Comment:
--- NOTE | 2018-10-21 18:42 | GDS ---
DISCHARGE DIAGNOSES: 1. Right hip fracture, likely osteoporotic. 2. Mechanical fall. 3. Anemia. 4. Hyponatremia. 5. Upper extremity tremors. 6. Hypertension. 7. History of paroxysmal atrial fibrillation. CONSULTATION: Dr. Yeboah. HISTORY: Briefly, the patient is a very nice 88-year-old gentleman who has a history of hypertension. He sustained a right hip fracture after falling. He had surgery with Dr. Yeboah on October 17 and has done quite well with surgery. Today, he will be discharged to the halfway home for further care. HOSPITAL COURSE: 1. Right hip fracture, likely osteoporotic. He is status post a right hip hemiarthroplasty on October 17. Did very well with surgery. 2. Mechanical fall, doing well with PT and OT. 3. Anemia, is expected postop. 4. Hyponatremia, resolved. 5. Tremors. These have been going on for approximately 6 months. I have recommended he follow up with a neurologist. 6. Hypertension, stable. 7. History of paroxysmal atrial fibrillation. He has been in sinus rhythm for this. He has been only on aspirin for this. DISCHARGE CONDITION: Stable. Blood pressure is 129/60, O2 sats on room air 93% , respiratory rate 16, pulse of 77. Temperature is 37.3 Celsius. DISCHARGE MEDICATIONS: Please see the EMR. DISCHARGE INSTRUCTIONS: 1. Activity per Dr. Yeboah. 2. To follow up with Dr. Yeboah in approximately 2 weeks. 3. Recheck labs in approximately a week. 4. If he develops fever, chills, chest pain, or shortness of breath, return to the ER. Greater than 30 minutes discharging and coordinating the patient's care. /[id number]/MODL MTDD
== END 2018-10-20 14:03 | DRG 470 ==
LOC: EDUNIT# → OBSVTOIN 22:20 → F3N 23:13
PROVIDERS: ADMIT Internal Medicine; ATTEND Internal Medicine
PROC: 0SRR0JZ Replacement of Right Hip Joint, Femoral Surface with Synthetic Substitute, Open Approach (ICD-10-PCS; principal; 2018-10-17 14:30)
DX: M80.051A Age-related osteoporosis with current pathological fracture, right femur, initial encounter for fracture (principal); E87.1 Hypo-osmolality and hyponatremia; W19.XXXA Unspecified fall, initial encounter; Y92.015 Private garage of single-family (private) house as the place of occurrence of the external cause; D64.9 Anemia, unspecified; R25.1 Tremor, unspecified; I10 Essential (primary) hypertension; I48.0 Paroxysmal atrial fibrillation; Z23 Encounter for immunization
CPT/HCPCS: 97116-GP; 97161-GP; 97165-GO; 97530-GP; 97535-GO; G0009; G8978-GP-CJ; G8979-GP-CI; G8980-GP-CI; J0171; J0690; J1650; J1885; J2270; J2704; J2795; J3010